=== PATIENT | male | born 1975 | race Caucasian/White ===

== ENCOUNTER 2019-07-17 16:34 | Inpatient (IN) ==
[2019-07-17] MEDS ORDERED: MORPHINE 4 MG/1 ML VIAL IV STA (18:17)
[2019-07-17] MEDS ORDERED: ONDANSETRON 4 MG/2 ML VIAL IV STA ×2 (18:18→20:10)
[2019-07-17 18:48] LABS: Basophils % 0.2 % (0.0-0.8); Eosinophils # 0.1 10*3/uL (0.0-0.87); Eosinophils % 2.6 % (0.00-10.9); Hematocrit 40.1 VOL% (42.0-52.0); Hemoglobin 13.3 GM/DL (14.0-18.0); Immature Granulocytes % 0.6 %; Immature Granulocytes Absolute 0.03 #; Lymphocytes # 1.4 10*3/uL (1.4-4.0); Lymphocytes % 25.5 % (21.2-54.2); Mean Corpuscular HGB Conc 33.2 GM/DL (32-36); Mean Platelet Volume 8.8 FL (9.6-12.0); Monocytes % 6.2 % (1.7-12.7); Neutrophils % 64.9 % (38.7-73.9); Platelet Count 153 T/CUMM (130-400); Red Blood Count 4.61 MC/CUMM (3.8-5.5); Red Cell Distribution Width 12.7 % (9.3-17.3); White Blood Count 5.3 T/CUMM (4-12)
[2019-07-17 18:58] LABS: INR 1.4; PT Patient Result 15.4 SECS (9.6-12.2)
[2019-07-17 19:11] LABS: Alanine Aminotransferase 20 U/L (16-61); Albumin 3.8 G/DL (3.4-5.0); Alkaline Phosphatase 91 U/L (45-117); Aspartate Amino Transferase 15 U/L (0-37); Bilirubin,Total < 0.39 MG/DL (0.2-1.0); Blood Urea Nitrogen 14 MG/DL (7-18); Calcium 8.9 MG/DL (8.5-10.1); Estimated Glom Filtration Rate 102 ML/MIN; Glucose 107 MG/DL (74-106); Osmolality,Calculated 283.1 MOS/KG (273-304); Total Protein 7.8 G/DL (6.4-8.3); Troponin I < 0.015 NG/ML (0.00-0.045)
[2019-07-17] MEDS ORDERED: HYDROmorphone 2 MG/1 ML VIAL IV STA (20:09)
[2019-07-17] MEDS ORDERED: ORPHENADRINE 60 MG/2 ML VIAL IV STA (20:09)
[2019-07-17] MEDS ORDERED: DOCUSATE SODIUM 100 MG CAPSULE PO PRN (21:08)
[2019-07-17] MEDS ORDERED: BISACODYL 5 MG TABLET PO PRN (21:08)
[2019-07-17] MEDS ORDERED: ACETAMINOPHEN 325 MG TABLET PO PRN (21:08)
[2019-07-17] MEDS ORDERED: ONDANSETRON 4 MG/2 ML VIAL IV PRN (21:08)
[2019-07-17] MEDS ORDERED: PROMETHAZINE 25 MG TABLET PO PRN (21:08)
[2019-07-17] MEDS ORDERED: ENOXAPARIN 120 MG/0.8 ML SYRINGE SUBCUT SCH (21:30)
[2019-07-17] MEDS: MORPHINE 4 MG/1 ML VIAL IV PRN (22:51)
[2019-07-17 22:53] LABS: Albumin 3.6 G/DL (3.4-5.0); Bilirubin,Total 0.4 MG/DL (0.2-1.0); Calcium 8.9 MG/DL (8.5-10.1); Osmolality,Calculated 283.1 MOS/KG (273-304); Total Protein 7.3 G/DL (6.4-8.3)
[2019-07-17] MEDS: ZALEPLON 5 MG CAPSULE PO PRN (23:24)
[2019-07-18] MEDS: MORPHINE 4 MG/1 ML VIAL IV PRN ×2 (06:25→10:42)
[2019-07-18] MEDS: PANTOPRAZOLE 40 MG TABLET PO SCH (08:32)
[2019-07-18] MEDS: HEPARIN DRIP 25,000 UNITS/500 ML PREMIX IV SCH ×2 (10:06→22:18)
[2019-07-18] MEDS: HYDROmorphone 2 MG/1 ML VIAL IV PRN ×2 (15:29→20:09)
[2019-07-18] MEDS ORDERED: VILAZODONE PO SCH (15:30)
[2019-07-18] MEDS: ZALEPLON 5 MG CAPSULE PO PRN (22:22)
[2019-07-19] MEDS: HYDROmorphone 2 MG/1 ML VIAL IV PRN ×3 (04:22→14:43)
[2019-07-19 04:57] LABS: Basophils % 0.4 % (0.0-0.8); Eosinophils # 0.2 10*3/uL (0.0-0.87); Eosinophils % 4.9 % (0.00-10.9); Hematocrit 39.8 VOL% (42.0-52.0); Hemoglobin 13.1 GM/DL (14.0-18.0); Immature Granulocytes Absolute 0.05 #; Lymphocytes % 40.6 % (21.2-54.2); Mean Corpuscular HGB Conc 32.9 GM/DL (32-36); Mean Corpuscular Volume 88.1 FL (87-102); Mean Platelet Volume 9.6 FL (9.6-12.0); Monocytes % 6.7 % (1.7-12.7); Neutrophils % 46.4 % (38.7-73.9); Platelet Count 170 T/CUMM (130-400); Red Blood Count 4.52 MC/CUMM (3.8-5.5); Red Cell Distribution Width 12.6 % (9.3-17.3); White Blood Count 4.9 T/CUMM (4-12)
[2019-07-19] MEDS ORDERED: VERAPAMIL SR 240 MG TABLET PO SCH (09:00)
[2019-07-19] MEDS ORDERED: LOSARTAN/HCTZ 50-12.5 MG TABLET PO SCH (09:00)
[2019-07-19] MEDS ORDERED: PANTOPRAZOLE 40 MG TABLET PO SCH (09:00)
[2019-07-19] MEDS ORDERED: ATORVASTATIN 20 MG TABLET PO SCH (09:00)
[2019-07-19] MEDS ORDERED: LOSARTAN 50 MG TABLET PO SCH (09:00)
[2019-07-19] MEDS ORDERED: MAGNESIUM OXIDE 400 MG TABLET PO SCH (09:00)
[2019-07-19] MEDS: PANTOPRAZOLE 40 MG TABLET PO SCH (09:04)
[2019-07-19] MEDS ORDERED: KETOROLAC 30 MG/1 ML VIAL IV ONE (09:35)
[2019-07-19] MEDS ORDERED: KETOROLAC 30 MG/1 ML VIAL IV PRN (09:38)
[2019-07-19] MEDS: HEPARIN DRIP 25,000 UNITS/500 ML PREMIX IV SCH (10:28)
[2019-07-19 11:34] VITALS: BP 110/59
== END 2019-07-19 15:59 | disposition home or self-care (01) | DRG 301 ==
LOC: N.ED 16:34 → SUATTDRO 21:08 → N.EDINP 21:08 → N.4E 22:08
PROVIDERS: ADMIT Internal Medicine; ATTEND Internal Medicine

== ENCOUNTER 2019-10-01 22:50 | Observation (INO) ==
[2019-10-01 23:31] LABS: Basophils % 0.6 % (0.0-0.8); Eosinophils # 0.1 10*3/uL (0.0-0.87); Eosinophils % 3.4 % (0.00-10.9); Hematocrit 40.9 VOL% (42.0-52.0); Hemoglobin 13.2 GM/DL (14.0-18.0); Immature Granulocytes % 0.3 %; Immature Granulocytes Absolute 0.01 #; Lymphocytes # 1.5 10*3/uL (1.4-4.0); Lymphocytes % 42.6 % (21.2-54.2); Mean Corpuscular HGB Conc 32.3 GM/DL (32-36); Mean Corpuscular Volume 89.5 FL (87-102); Mean Platelet Volume 8.7 FL (9.6-12.0); Monocytes % 7.1 % (1.7-12.7); Platelet Count 242 T/CUMM (130-400); Red Blood Count 4.57 MC/CUMM (3.8-5.5); Red Cell Distribution Width 12.1 % (9.3-17.3); White Blood Count 3.5 T/CUMM (4-12)
[2019-10-01 23:50] LABS: Albumin 3.8 G/DL (3.4-5.0); Bilirubin,Total 0.4 MG/DL (0.2-1.0); Calcium 9.7 MG/DL (8.5-10.1); Osmolality,Calculated 279.4 MOS/KG (273-304); Total Protein 7.4 G/DL (6.4-8.3)
[2019-10-02] MEDS ORDERED: PIPERACILLIN/TAZOBACTAM 3,375 MG in SODIUM CHLORIDE 0.9% 100 ML IV STA (00:44)
[2019-10-02] MEDS ORDERED: FUROSEMIDE 40 MG/4 ML VIAL IV STA (00:44)
[2019-10-02] MEDS ORDERED: ALBUTEROL/IPRATROPIUM 3 ML NEB RESP TX STA (00:44)
[2019-10-02] MEDS ORDERED: ONDANSETRON 4 MG/2 ML VIAL IV STA (00:45)
[2019-10-02] MEDS ORDERED: HYDROmorphone 2 MG/1 ML VIAL IV ONE (00:45)
[2019-10-02] MEDS ORDERED: PIPERACILLIN/TAZOBACTAM 3,375 MG VIAL IV ONE (00:47)
[2019-10-02 01:18] LABS: PT Patient Result 10.7 SECS (9.6-12.2)
[2019-10-02] MEDS ORDERED: HYDROmorphone 2 MG/1 ML VIAL IV STA ×2 (02:00→04:47)
[2019-10-02] MEDS ORDERED: ACETAMINOPHEN 325 MG TABLET PO PRN (04:57)
[2019-10-02] MEDS ORDERED: ONDANSETRON 4 MG/2 ML VIAL IV PRN (04:57)
[2019-10-02] MEDS: LOSARTAN 50 MG TABLET PO SCH (08:39)
[2019-10-02] MEDS: CLOPIDOGREL 75 MG TABLET PO SCH (08:40)
[2019-10-02] MEDS: ATORVASTATIN 20 MG TABLET PO SCH (08:40)
[2019-10-02] MEDS: hydroCHLOROthiazide 12.5 MG CAPSULE PO SCH (08:40)
[2019-10-02] MEDS: MAGNESIUM OXIDE 400 MG TABLET PO SCH (08:40)
[2019-10-02] MEDS: PANTOPRAZOLE 40 MG TABLET PO SCH (08:40)
[2019-10-02] MEDS: VERAPAMIL SR 240 MG TABLET PO SCH (08:41)
[2019-10-02] MEDS: HEPARIN DRIP 25,000 UNITS/500 ML PREMIX IV SCH ×2 (08:43→22:09)
[2019-10-02] MEDS ORDERED: APIXABAN 5 MG TABLET PO SCH (09:00)
[2019-10-02] MEDS: MORPHINE 4 MG/1 ML VIAL IV PRN ×3 (12:02→20:55)
[2019-10-02] MEDS: COLLAGENASE OINT 30 GM TUBE TOP SCH (13:45)
[2019-10-03] MEDS: MORPHINE 4 MG/1 ML VIAL IV PRN ×3 (03:07→11:40)
[2019-10-03 05:40] LABS: Basophils % 0.5 % (0.0-0.8); Eosinophils # 0.1 10*3/uL (0.0-0.87); Eosinophils % 2.4 % (0.00-10.9); Hematocrit 37.1 VOL% (42.0-52.0); Hemoglobin 12.1 GM/DL (14.0-18.0); Immature Granulocytes % 0.5 %; Immature Granulocytes Absolute 0.02 #; Lymphocytes # 1.6 10*3/uL (1.4-4.0); Lymphocytes % 43.9 % (21.2-54.2); Mean Corpuscular HGB Conc 32.6 GM/DL (32-36); Mean Corpuscular Volume 87.7 FL (87-102); Mean Platelet Volume 8.7 FL (9.6-12.0); Neutrophils % 45.7 % (38.7-73.9); Platelet Count 165 T/CUMM (130-400); Red Blood Count 4.23 MC/CUMM (3.8-5.5); White Blood Count 3.7 T/CUMM (4-12)
[2019-10-03 06:17] LABS: Calcium 9.1 MG/DL (8.5-10.1); Osmolality,Calculated 272.8 MOS/KG (273-304)
[2019-10-03] MEDS: HEPARIN DRIP 25,000 UNITS/500 ML PREMIX IV SCH (07:33)
[2019-10-03] MEDS ORDERED: APIXABAN 5 MG TABLET PO SCH (09:00)
[2019-10-03] MEDS: PANTOPRAZOLE 40 MG TABLET PO SCH (09:08)
[2019-10-03] MEDS: CLOPIDOGREL 75 MG TABLET PO SCH (09:08)
[2019-10-03] MEDS: hydroCHLOROthiazide 12.5 MG CAPSULE PO SCH (09:08)
[2019-10-03] MEDS: MAGNESIUM OXIDE 400 MG TABLET PO SCH (09:09)
[2019-10-03] MEDS: LOSARTAN 50 MG TABLET PO SCH (09:09)
[2019-10-03] MEDS: ATORVASTATIN 20 MG TABLET PO SCH (09:09)
[2019-10-03] MEDS: COLLAGENASE OINT 30 GM TUBE TOP SCH ×2 (09:10→09:38)
[2019-10-03] MEDS: VERAPAMIL SR 240 MG TABLET PO SCH (09:10)
[2019-10-03 11:08] VITALS: BP 106/59
== END 2019-10-03 12:29 | disposition home health service (06) ==
LOC: N.EDINP 22:50 → N.ED 22:50 → N.2E 10-02 05:25
PROVIDERS: ADMIT Internal Medicine; ATTEND Internal Medicine

== ENCOUNTER 2022-08-13 20:16 | Inpatient (IN) ==
[2022-08-13 20:41] LABS: Basophils % 0.4 % (0.0-0.8); Eosinophils # 0.2 10*3/uL (0.0-0.87); Hematocrit 42.9 VOL% (42.0-52.0); Immature Granulocytes % 0.6 %; Immature Granulocytes Absolute 0.03 #; Lymphocytes # 1.4 10*3/uL (1.4-4.0); Lymphocytes % 28.5 % (21.2-54.2); Mean Corpuscular HGB Conc 32.6 GM/DL (32-36); Monocytes # 0.2 10*3/uL (0.11-0.8); Monocytes % 4.6 % (1.7-12.7); Neutrophils % 62.9 % (38.7-73.9); Platelet Count 180 T/CUMM (130-400); Red Blood Count 4.82 MC/CUMM (3.8-5.5); Red Cell Distribution Width 13.3 % (9.3-17.3)
[2022-08-13 20:57] LABS: Albumin 4.2 G/DL (3.4-5.0); Bilirubin,Total 0.4 MG/DL (0.20-1.00); Calcium 9.1 MG/DL (8.5-10.1); Osmolality,Calculated 281.3 MOS/KG (273-304); Potassium 3.7 MMOL/L (3.5-5.1); Total Protein 7.5 G/DL (6.4-8.2)
[2022-08-13 20:58] LABS: PT Patient Result 10.6 SECS (10.1-12.1); Partial Thromboplastin Time 25.1 SECS (23.7-32.9)
[2022-08-13] MEDS ORDERED: MORPHINE 2 MG/1 ML SYRINGE IV STA (22:25)
[2022-08-13] MEDS ORDERED: PROMETHAZINE 25 MG/1 ML VIAL IM STA (22:25)
[2022-08-13] MEDS: HEPARIN DRIP 25,000 UNITS/500 ML PREMIX IV SCH (23:41)
[2022-08-13] MEDS ORDERED: hydrALAZINE 20 MG/1 ML VIAL IV PRN (23:46)
[2022-08-13] MEDS ORDERED: guaiFENesin/DM ER 600-30 MG TABLET PO PRN (23:46)
[2022-08-13] MEDS ORDERED: NICOTINE 21 MG/24 HR PATCH TRANSDERM PRN (23:46)
[2022-08-13] MEDS ORDERED: diphenhydrAMINE CAP 25 MG CAPSULE PO PRN (23:46)
[2022-08-13] MEDS ORDERED: ACETAMINOPHEN 325 MG TABLET PO PRN (23:46)
[2022-08-13] MEDS ORDERED: ZALEPLON 5 MG CAPSULE PO PRN (23:46)
[2022-08-13] MEDS ORDERED: ONDANSETRON 4 MG/2 ML VIAL IV PRN (23:46)
[2022-08-13] MEDS ORDERED: ALBUTEROL/IPRATROPIUM 3 ML NEB RESP TX ONE (23:58)
[2022-08-14] MEDS: ALBUTEROL/IPRATROPIUM 3 ML NEB RESP TX SCH ×3 (00:01→14:37)
[2022-08-14] MEDS: MORPHINE 2 MG/1 ML SYRINGE IV PRN ×4 (00:33→16:47)
[2022-08-14 05:05] LABS: Basophils % 0.8 % (0.0-0.8); Eosinophils # 0.1 10*3/uL (0.0-0.87); Eosinophils % 3.7 % (0.00-10.9); Hematocrit 38.1 VOL% (42.0-52.0); Hemoglobin 12.8 GM/DL (14.0-18.0); Immature Granulocytes % 0.8 %; Immature Granulocytes Absolute 0.03 #; Lymphocytes # 1.3 10*3/uL (1.4-4.0); Lymphocytes % 35.9 % (21.2-54.2); Mean Corpuscular HGB Conc 33.6 GM/DL (32-36); Mean Platelet Volume 9.6 FL (9.6-12.0); Monocytes # 0.2 10*3/uL (0.11-0.8); Monocytes % 6.8 % (1.7-12.7); Platelet Count 145 T/CUMM (130-400); Red Blood Count 4.33 MC/CUMM (3.8-5.5); Red Cell Distribution Width 13.5 % (9.3-17.3); White Blood Count 3.5 T/CUMM (4-12)
[2022-08-14 05:29] LABS: Calcium 8.6 MG/DL (8.5-10.1); Osmolality,Calculated 283.1 MOS/KG (273-304); Potassium 3.5 MMOL/L (3.5-5.1)
[2022-08-14] MEDS: PROMETHAZINE 25 MG/1 ML VIAL IM PRN ×2 (07:58→14:05)
[2022-08-14] MEDS ORDERED: PANTOPRAZOLE 40 MG TABLET PO SCH (09:00)
[2022-08-14] MEDS ORDERED: BISACODYL 5 MG TABLET PO SCH (09:00)
[2022-08-14] MEDS ORDERED: RIVAROXABAN 20 MG TABLET PO ONE (10:58)
[2022-08-14] MEDS ORDERED: CLOPIDOGREL 75 MG TABLET PO ONE (10:58)
[2022-08-14] MEDS: HEPARIN DRIP 25,000 UNITS/500 ML PREMIX IV SCH (12:09)
[2022-08-14 17:26] VITALS: BP 120/60
== END 2022-08-14 18:34 | disposition home or self-care (01) | DRG 176 ==
LOC: N.ED 20:16 → N.EDINP 23:46 → N.2E 08-14 01:04
PROVIDERS: ADMIT Hospitalist; ATTEND Hospitalist